=== PATIENT | male | born 1970 | race Asian ===

== ENCOUNTER 2020-06-24 13:39 | Emergency (ER) | payer SELFPAY ==
[2020-06-24] MEDS ORDERED: Boostrix 0.5 ML VIAL ONE (13:49)
--- NOTE | 2020-06-24 15:17 | RAD ---
XR Hand Lt 3 View STANDARD: 06/24/2020 12:00 AM CLINICAL INDICATION: Left hand was soft tissue injury COMPARISON: None. FINDINGS: Bones: No acute osseous abnormality. Joints: Joint spaces are preserved. Soft Tissue: No radiopaque foreign body. IMPRESSION: No acute osseous abnormality..
== END 2020-06-24 15:52 | disposition short-term general hospital (02) ==
LOC: ERS 13:39
DX: S61.412A Laceration without foreign body of left hand, initial encounter (principal); W29.3XXA Contact with powered garden and outdoor hand tools and machinery, initial encounter; Z23 Encounter for immunization
CPT/HCPCS: 90471; 90715; 96374; J0690